=== PATIENT | female | born 1970 | race Caucasian/White ===

== ENCOUNTER 2020-08-04 14:08 | Emergency (ER) | payer OTHER ==
[~2020-08-04] VITALS: Ht 167.6 cm; Wt 68.0 kg
[2020-08-04 15:06] VITALS: BP 115/78
[2020-08-05] MEDS ORDERED: BACTRIM DS TAB1 EACH PO (12:02)
[2020-08-05] MEDS ORDERED: MEDROLDOSEPACK PO (12:02)
== END 2020-08-04 15:07 | disposition home or self-care (01) ==
LOC: M.ERS 14:08
DX: L25.9 Unspecified contact dermatitis, unspecified cause (principal); L08.9 Local infection of the skin and subcutaneous tissue, unspecified